=== PATIENT | male | born 1940 | race Caucasian/White ===

== ENCOUNTER 2017-10-09 22:02 | Emergency (ER) | payer OTHER ==
[~2017-10-09] VITALS: Ht 167.6 cm; Wt 63.5 kg
[2017-10-09 22:10] VITALS: BP 180/84; PULSE 78; RESP 18; TEMP 98.2; O2SAT 99
[2017-10-09] MEDS ORDERED: LOVA10TA PO (22:18)
[2017-10-09 22:19] VITALS: BP 169/89; PULSE 82; RESP 16; O2SAT 100
--- NOTE | 2017-10-09 22:51 | PD ---
HPI Chief Complaint: Depression Time Seen by Provider: 22:18 Travel History International Travel<30 days: No Contact w/Intl Traveler<30days: No Traveled to known affect area: No History of Present Illness HPI This is a 77-year-old male presented the ER complaining of crying spells for the last 2 weeks. Today states that the crying spells are alternating with times where he laughs for no reason. He states that he is unable to control those crying spells. When I asked the patient why he has been crying like that he states that his doctor put him on "sodium free diet" and since then has been crying a lot and says that "messed up with his mind". Patient denies any suicidal or homicidal ideations, he lives with his and states that his could not come to the ER since she is babysitting. Patient voluntarily walked to the ER for evaluation, he also states that has been feeling sad since he lost 1 of his cousins as he at age of 89. Patient states that he has been feeling sad then been crying more often has been thinking about him as well. PFSH Past Medical History Thyroid Disease: Yes ?: Not Social History Alcohol Use: No Tobacco Use: No Substance Use: No Allergies-Medications (Allergen,Severity, Reaction): Coded Allergies: No Known Allergies (Unverified , 10/09/17) Reported Meds & Prescriptions Reported Meds & Active Scripts Active Reported Lovastatin 10 Mg Tab 10 Mg PO DAILY Review of Systems Except as stated in HPI: all other systems reviewed are Neg Physical Exam Narrative GENERAL: Alert oriented 3 no acute distress SKIN: Focused skin assessment warm/dry. HEAD: Atraumatic. Normocephalic. EYES: Pupils equal and round. No scleral icterus. No injection or drainage. ENT: No nasal bleeding or discharge. Mucous membranes pink and moist. NECK: Trachea midline. CARDIOVASCULAR: Regular rate and rhythm. No murmur appreciated. RESPIRATORY: No accessory muscle use. Clear to auscultation. Breath sounds equal bilaterally. GASTROINTESTINAL: Abdomen soft, non-tender, nondistended. Hepatic and splenic margins not palpable. MUSCULOSKELETAL: No obvious deformities. No clubbing. No cyanosis. No edema. NEUROLOGICAL: Awake and alert. No obvious cranial nerve deficits. Motor grossly within normal limits. Normal speech. PSYCHIATRIC: Appropriate mood and affect; insight and judgment normal. Data Data Last Documented VS Orders Orders Thyroid Stimulating Hormone (10/09/17 22:47) Comprehensive Metabolic Panel (10/09/17 22:47) Complete Blood Count With Diff (10/09/17 22:47) Psych Screen (10/10/17 00:10) Ed Discharge Order (10/10/17 03:41) Labs Laboratory Tests Test 10/09/17 22:50 White Blood Count 7.7 TH/MM3 Red Blood Count 4.76 MIL/MM3 Hemoglobin 13.5 GM/DL Hematocrit 40.8 % Mean Corpuscular Volume 85.8 FL Mean Corpuscular Hemoglobin 28.3 PG Mean Corpuscular Hemoglobin Concent 33.0 % Red Cell Distribution Width 15.9 % Platelet Count 288 TH/MM3 Mean Platelet Volume 7.3 FL Neutrophils (%) (Auto) 70.0 % Lymphocytes (%) (Auto) 21.1 % Monocytes (%) (Auto) 6.0 % Eosinophils (%) (Auto) 2.1 % Basophils (%) (Auto) 0.8 % Neutrophils # (Auto) 5.2 TH/MM3 Lymphocytes # (Auto) 1.6 TH/MM3 Monocytes # (Auto) 0.5 TH/MM3 Eosinophils # (Auto) 0.2 TH/MM3 Basophils # (Auto) 0.1 TH/MM3 CBC Comment DIFF FINAL Differential Comment Blood Urea Nitrogen 24 MG/DL Creatinine 0.81 MG/DL Random Glucose 98 MG/DL Total Protein 7.0 GM/DL Albumin 3.4 GM/DL Calcium Level 8.7 MG/DL Alkaline Phosphatase 72 U/L Aspartate Amino Transf (AST/SGOT) 23 U/L Alanine Aminotransferase (ALT/SGPT) 22 U/L Total Bilirubin 0.3 MG/DL Sodium Level 142 MEQ/L Potassium Level 3.5 MEQ/L Chloride Level 109 MEQ/L Carbon Dioxide Level 26.4 MEQ/L Anion Gap 7 MEQ/L Estimat Glomerular Filtration Rate 92 ML/MIN Thyroid Stimulating Hormone 3rd Gen 4.300 uIU/ML MDM Medical Decision Making Medical Screen Exam Complete: Yes Emergency Medical Condition: Yes Differential Diagnosis Major depressive disorder, grief, bipolar, hypothyroidism. Narrative Course Pending labs. Patient will be signed out next shift. Josue Cuevas MD Oct 09, 2017 22:51
[2017-10-09 23:05] LABS: AUTOMATED NEUTROPHIL # 5.2 TH/MM3 (1.8-7.7); BASOPHIL # 0.1 TH/MM3 (0-0.2); BASOPHIL % 0.8 % (0.0-2.0); EOSINOPHIL # 0.2 TH/MM3 (0-0.4); EOSINOPHIL % 2.1 % (0.0-4.0); HEMATOCRIT 40.8 % (39.0-51.0); HEMOGLOBIN 13.5 GM/DL (13.0-17.0); LYMPH % 21.1 % (9.0-44.0); LYMPHOCYTE # 1.6 TH/MM3 (1.0-4.8); MEAN CELL VOLUME 85.8 FL (80.0-100.0); MEAN CORPUSCULAR HEMOGLOBIN 28.3 PG (27.0-34.0); MEAN PLATELET VOLUME 7.3 FL (7.0-11.0); MONOCYTE # 0.5 TH/MM3 (0-0.9); PLATELET COUNT 288 TH/MM3 (150-450); RED BLOOD COUNT 4.76 MIL/MM3 (4.50-5.90); RED CELL DISTRIBUTION WIDTH 15.9 % (11.6-17.2); WHITE BLOOD COUNT 7.7 TH/MM3 (4.0-11.0)
[2017-10-09 23:13] LABS: CHLORIDE 109 MEQ/L (98-107); SODIUM (NA) 142 MEQ/L (136-145)
[2017-10-09 23:16] LABS: CALCIUM 8.7 MG/DL (8.5-10.1)
[2017-10-09 23:17] LABS: ALBUMIN 3.4 GM/DL (3.4-5.0); BICARBONATE 26.4 MEQ/L (21.0-32.0); BLOOD UREA NITROGEN 24 MG/DL (7-18); GLUCOSE,RANDOM 98 MG/DL (74-106)
[2017-10-09 23:20] LABS: ALT (GPT) 22 U/L (12-78); AST (GOT) 23 U/L (15-37); CREATININE 0.81 MG/DL (0.60-1.30); GLOMERULAR FILTRATION RATE 92 ML/MIN (>89)
[2017-10-09 23:21] LABS: TOTAL BILIRUBIN ADULT 0.3 MG/DL (0.2-1.0)
[2017-10-09 23:23] LABS: ALKALINE PHOSPHATASE 72 U/L (45-117)
[2017-10-10 00:36] VITALS: BP 149/84; PULSE 78; RESP 16; O2SAT 100
[2017-10-10 01:30] VITALS: BP 143/75; PULSE 71; RESP 16; TEMP 98.3; O2SAT 99
--- NOTE | 2017-10-10 03:35 | PD ---
Physical Exam Date Seen by Provider: Oct 10, 2017 Time Seen by Provider: 03:31 Narrative Patient presented voluntarily to the emergency department for evaluation crying spells after losing his cousin 2 weeks ago. He states his cousin lives in [place] and him and his both very upset after he heard of her passing and more crying. He denies any suicidal homicidal ideations. Patient was transferred from [facility] for psych eval. He denies any hallucinations. Patient has no other complaints at this time. He states that he was told by a doctor friend that it is normal to cry when you are mourning. Patient is well-appearing. Data Data Last Documented VS Vital Signs Date Time Temp Pulse Resp B/P (MAP) Pulse Ox O2 Delivery O2 Flow Rate FiO2 10/10/17 01:30 98.3 71 16 143/75 (97) 99 Room Air Orders Orders Thyroid Stimulating Hormone (10/09/17 22:47) Comprehensive Metabolic Panel (10/09/17 22:47) Complete Blood Count With Diff (10/09/17 22:47) Free Thyroxine (T4) (10/09/17 23:42) Free T3 (10/09/17 23:42) Psych Screen (10/10/17 00:10) Ed Discharge Order (10/10/17 03:41) Labs Laboratory Tests Test 10/09/17 22:50 White Blood Count 7.7 TH/MM3 Red Blood Count 4.76 MIL/MM3 Hemoglobin 13.5 GM/DL Hematocrit 40.8 % Mean Corpuscular Volume 85.8 FL Mean Corpuscular Hemoglobin 28.3 PG Mean Corpuscular Hemoglobin Concent 33.0 % Red Cell Distribution Width 15.9 % Platelet Count 288 TH/MM3 Mean Platelet Volume 7.3 FL Neutrophils (%) (Auto) 70.0 % Lymphocytes (%) (Auto) 21.1 % Monocytes (%) (Auto) 6.0 % Eosinophils (%) (Auto) 2.1 % Basophils (%) (Auto) 0.8 % Neutrophils # (Auto) 5.2 TH/MM3 Lymphocytes # (Auto) 1.6 TH/MM3 Monocytes # (Auto) 0.5 TH/MM3 Eosinophils # (Auto) 0.2 TH/MM3 Basophils # (Auto) 0.1 TH/MM3 CBC Comment DIFF FINAL Differential Comment Blood Urea Nitrogen 24 MG/DL Creatinine 0.81 MG/DL Random Glucose 98 MG/DL Total Protein 7.0 GM/DL Albumin 3.4 GM/DL Calcium Level 8.7 MG/DL Alkaline Phosphatase 72 U/L Aspartate Amino Transf (AST/SGOT) 23 U/L Alanine Aminotransferase (ALT/SGPT) 22 U/L Total Bilirubin 0.3 MG/DL Sodium Level 142 MEQ/L Potassium Level 3.5 MEQ/L Chloride Level 109 MEQ/L Carbon Dioxide Level 26.4 MEQ/L Anion Gap 7 MEQ/L Estimat Glomerular Filtration Rate 92 ML/MIN Thyroid Stimulating Hormone 3rd Gen 4.300 uIU/ML [facility] Medical Record Reviewed: Yes Supervised Visit with MILLA: No Narrative Course Patient is a 77-year-old male presenting voluntarily to the emergency department for a psychiatric evaluation. Patient is not suicidal or homicidal. Patient is well-appearing, he is pleasant. He was seen and evaluated by the psychiatric nurse screener. He is requesting to go home. Patient will be discharged home, friend came to pick him up in the emergency department. Please see previous providers note for full history and physical. Patient was encouraged to return to emergency department immediately for any new or worsening symptoms. He was encouraged to follow-up with his primary doctor as well. Patient verbalized understanding of instructions. Patient stable for discharge. Diagnosis Primary Impression: Grief reaction Referrals: Primary Care Physician Patient Instructions: General Instructions Additional Instruction: Follow-up with your primary doctor Return to emergency department for any new or worsening symptoms Med/Other Pt SpecificInfo: No Change to Meds Disposition: 01 DISCHARGE HOME Condition: Stable Ellyn Peralta Oct 10, 2017 03:35
--- NOTE | 2017-10-10 13:40 | PD ---
Physical Exam Date Seen by Provider: Oct 10, 2017 Time Seen by Provider: 00:10 Narrative accepted in transfer of care from Dr Cuevas GENERAL: Well-developed well-nourished male no acute distress no respiratory distress; intermittently tearful; GCS 15, alert and oriented to person place time and events. SKIN: Warm and dry. HEAD: Normocephalic. EYES: No scleral icterus. No injection or drainage. NECK: Supple, trachea midline. No JVD or lymphadenopathy. CARDIOVASCULAR: Regular rate and rhythm without murmurs, gallops, or rubs. RESPIRATORY: Breath sounds equal bilaterally. No accessory muscle use. GASTROINTESTINAL: Abdomen soft, non-tender, nondistended. MUSCULOSKELETAL: No cyanosis, or edema. BACK: Nontender without obvious deformity. No CVA tenderness. NEUROLOGICAL: Awake and alert. No obvious cranial nerve deficits. Motor grossly within normal limits. Five out of 5 muscle strength in the arms and legs. Normal speech. PSYCHIATRIC: Mildly depressed mood and affect; insight and judgment normal. Data Data Last Documented VS Vital Signs Date Time Temp Pulse Resp B/P (MAP) Pulse Ox O2 Delivery O2 Flow Rate FiO2 10/10/17 03:45 10/10/17 01:30 98.3 71 16 99 Room Air Orders Orders Thyroid Stimulating Hormone (10/09/17 22:47) Comprehensive Metabolic Panel (10/09/17 22:47) Complete Blood Count With Diff (10/09/17 22:47) Free Thyroxine (T4) (10/09/17 23:42) Free T3 (10/09/17 23:42) Psych Screen (10/10/17 00:10) Ed Discharge Order (10/10/17 03:41) Labs Laboratory Tests Test 10/09/17 22:50 White Blood Count 7.7 TH/MM3 Red Blood Count 4.76 MIL/MM3 Hemoglobin 13.5 GM/DL Hematocrit 40.8 % Mean Corpuscular Volume 85.8 FL Mean Corpuscular Hemoglobin 28.3 PG Mean Corpuscular Hemoglobin Concent 33.0 % Red Cell Distribution Width 15.9 % Platelet Count 288 TH/MM3 Mean Platelet Volume 7.3 FL Neutrophils (%) (Auto) 70.0 % Lymphocytes (%) (Auto) 21.1 % Monocytes (%) (Auto) 6.0 % Eosinophils (%) (Auto) 2.1 % Basophils (%) (Auto) 0.8 % Neutrophils # (Auto) 5.2 TH/MM3 Lymphocytes # (Auto) 1.6 TH/MM3 Monocytes # (Auto) 0.5 TH/MM3 Eosinophils # (Auto) 0.2 TH/MM3 Basophils # (Auto) 0.1 TH/MM3 CBC Comment DIFF FINAL Differential Comment Blood Urea Nitrogen 24 MG/DL Creatinine 0.81 MG/DL Random Glucose 98 MG/DL Total Protein 7.0 GM/DL Albumin 3.4 GM/DL Calcium Level 8.7 MG/DL Alkaline Phosphatase 72 U/L Aspartate Amino Transf (AST/SGOT) 23 U/L Alanine Aminotransferase (ALT/SGPT) 22 U/L Total Bilirubin 0.3 MG/DL Sodium Level 142 MEQ/L Potassium Level 3.5 MEQ/L Chloride Level 109 MEQ/L Carbon Dioxide Level 26.4 MEQ/L Anion Gap 7 MEQ/L Estimat Glomerular Filtration Rate 92 ML/MIN Thyroid Stimulating Hormone 3rd Gen 4.300 uIU/ML MDM Medical Record Reviewed: Yes Supervised Visit with MILLA: No Interpretation(s) CBC & BMP Diagram 10/09/17 22:50 Total Protein 7.0, Albumin 3.4, Calcium Level 8.7, Alkaline Phosphatase 72, Aspartate Amino Transf (AST/SGOT) 23, Alanine Aminotransferase (ALT/SGPT) 22, Total Bilirubin 0.3 TSH: 4.300, elevated Differential Diagnosis accepted in transfer of care from Dr Cuevas; please refer to his dictation; depression anxiety mood disorder electrolyte disturbance thyroid dysfunction Narrative Course accepted in transfer of care from Dr Cuevas; follow up on pending labs and disposition 77-year-old male presents to the emergency department by EMS transport from home for evaluation of crying and being very upset following the recent of a very close cousin age 93 who lived in [facility]. Patient reports he is very upset as he was very close to this individual that recently within the past few weeks. Patient states he has been crying quite a bit but intermittently laughing. Patient states that he is concerned that his recent diet that he was placed on by his [place] attendant for his thyroid dysfunction may be contributing to him being very upset. Patient states that he is also concerned about his sodium being low. Patient states that he has no suicidal or homicidal intentions and no plans. Patient states that he thinks that he should fly over to [facility] to be with his extended family. Patient believes his is upset with him and is also upset about his cousins . Currently his is in [place]. Patient presents with friends. Patient states he knows he is grieving and mourning the of his cousin. Labs are resulted, patient is identified to have mildly elevated TSH: 4.300; patient serum sodium is found to be in normal range at 142 other labs are found to be grossly within normal limits. Free t4 and t3 levels ordered. Patient reports that he has appointment on Tuesday with his [place] attendant. Patient informed of lab results. Patient appears depressed associated with grieving loss of recent family member. Patient is otherwise cooperative and appropriate. Patient presents voluntarily and is medically cleared however have discussed with patient recommendation for psych screening. Patient is agreeable to having mental health screening. Patient's case has been discussed with psych screenerVanessa, at [facility] and will be sent by security for voluntary psych screening. Currently no beds in [facility]; patient will be sent to [facility] main ED for psych evaluation. Physician Communication Physician Communication medically cleared for psych screen Diagnosis Primary Impression: Grief reaction Referrals: Primary Care Physician Patient Instructions: General Instructions, Grief and Loss (ED), Suicide Prevention for Older Adults (ED) Additional Instruction: Follow-up with your primary doctor Return to emergency department for any new or worsening symptoms Disposition: 01 DISCHARGE HOME Condition: Stable Dottie Young MD Oct 10, 2017 13:39
== END 2017-10-10 03:45 | disposition home or self-care (01) ==
LOC: PHED 22:02 → NEPD 10-10 03:45
DX: F43.20 Adjustment disorder, unspecified (principal); E07.9 Disorder of thyroid, unspecified; Z79.899 Other long term (current) drug therapy
CPT/HCPCS: 80053; 84443; 85025; 99283